=== PATIENT | male | born 1960 | race American Indian/Alaskan Native ===

== ENCOUNTER 2021-02-28 14:40 | Emergency (ER) | payer SELFPAY ==
[2021-02-28 16:24] VITALS: BP 133/80
--- NOTE | 2021-02-28 18:06 | XRay Report ---
LEFT KNEE 3 VIEWS INDICATION: left knee pain. COMPARISON: No relevant prior imaging study available. FINDINGS: No acute skeletal abnormality. No significant joint effusion. No significant degenerative changes. So ft tissues are unremarkable. IMPRESSION: 1. No acute findings. Signer Name: Denys Tobias MD Signed: 02/28/2021 6:02 PM Workstation Name: [id number]
--- NOTE | 2021-02-28 18:21 | Emergency Department Report ---
ED Extremity Problem HPI - General Chief complaint: Extremity Injury, Lower Stated complaint: LT KNEE PAIN Time Seen by Provider: 02/28/21 17:32 Source: patient Mode of arrival: Ambulatory Limitations: No Limitations - History of Present Illness Initial comments: Patient is a 61-year-old male presents emergency room with complaints of left knee pain that began a couple days ago. He denies any fall or injury. 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 He denies ever having in the past. He denies any numbness or weakness. He denies any fever, redness, nausea, vomiting, diarrhea, chills. He denies ever injuring in the past. No past medical history. No allergies to medications. Severity scale (0 -10): 10 - Related Data Previous Rx's Medication Instructions Recorded Last Taken Type Diclofenac Sodium [Voltaren 1 applicatio TP BID #20 gel..gram. 02/28/21 Unknown Rx Arthritis Pain] Naproxen [EC-Naproxen] 500 mg PO BID PRN #20 tablet. 02/28/21 Unknown Rx Allergies Allergy/AdvReac Type Severity Reaction Status Date / Time No Known Allergies Allergy Unverified 02/28/21 16:20 ED Review of Systems ROS: Stated complaint: LT KNEE PAIN Other details as noted in HPI Comment: All other systems reviewed and negative ED Past Medical Hx - Past Medical History Previous Medical History?: No - Surgical History Hx Appendectomy: Yes Additional Surgical History: abd surgery - Medications Home Medications: Home Medications Medication Instructions Recorded Confirmed Last Taken Type Diclofenac Sodium [Voltaren 1 applicatio TP BID #20 gel..gram. 02/28/21 Unknown Rx Arthritis Pain] Naproxen [EC-Naproxen] 500 mg PO BID PRN #20 tablet. 02/28/21 Unknown Rx ED Physical Exam - General Limitations: No Limitations General appearance: alert, in no apparent distress - Head Head exam: Present: atraumatic, normocephalic - Eye Eye exam: Present: normal appearance - ENT ENT exam: Present: mucous membranes moist - Respiratory Respiratory exam: Absent: respiratory distress, accessory muscle use - Extremities Exam Extremities exam: Present: other (ttp to the left anterior and medial knee, no edema, no increased warmth, no erythema, no skin changes, no joint laxity, no deformity, neurovascularly intact, no calf ttp, no leg edema) - Neurological Exam Neurological exam: Present: alert, oriented X3 - Psychiatric Psychiatric exam: Present: normal affect, normal mood - Skin Skin exam: Present: warm, dry, intact ED Course Vital Signs 02/28/21 16:22 Temperature 98.4 F Pulse Rate 72 Respiratory 16 Rate Blood Pressure 133/80 [Right] O2 Sat by Pulse 99 Oximetry ED Medical Decision Making - Radiology Data Radiology results: report reviewed Ordering Physician: DAWSON GIBSON Date of Service: 02/28/21 Procedure(s): XR knee 3V LT Accession Number(s): [id number] cc: DAWSON GIBSON Fluoro Time In Minutes: LEFT KNEE 3 VIEWS INDICATION: left knee pain. COMPARISON: No relevant prior imaging study available. FINDINGS: No acute skeletal abnormality. No significant joint effusion. No significant degenerative changes. Soft tissues are unremarkable. IMPRESSION: 1. No acute findings. Signer Name: Denys Tobias MD Signed: 02/28/2021 6:02 PM Workstation Name: [id number] Transcribed By: KYLAH Dictated By: Denys Tobias MD Electronically Authenticated By: Denys Tobias MD Signed Date/Time: 02/28/211801 DD/ 00 TD/TT: - Medical Decision Making Patient is a 61-year-old male presents emergency room with complaints of left knee pain that began a couple days ago. He denies any fall or injury. 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 He denies ever having in the past. He denies any numbness or weakness. He denies any fever, redness, nausea, vomiting, diarrhea, chills. He denies ever injuring in the past. No past medical history. No allergies to medications. Vitals are normal. On exam:ttp to the left anterior and medial knee, no edema, no increased warmth, no erythema, no skin changes, no joint laxity, no deformity, neurovascularly intact, no calf ttp, no leg edema. X-ray left knee: 1. No acute findings. Symptoms could be related to tendinitis versus bursitis. Could be job-related secondary to frequent movement and kneeling. Patient given prescription for Voltaren gel and naproxen. Advised patient Please use medication as prescribed. May use ice for 15 minutes at a time, rest, elevation of the leg. Please avoid kneeling onto that knee. Follow-up with orthopedic doctor. Return to emergency room for new or symptoms. Critical care attestation.: If time is entered above; I have spent that time in minutes in the direct care of this critically ill patient, excluding procedure time. ED Disposition Clinical Impression: Left knee pain Qualifiers: Chronicity: acute Qualified Code(s): M25.562 - Pain in left knee Disposition: DC- TO HOME OR SELFCARE Is pt being admited?: No Does the pt Need Aspirin: No Condition: Stable Instructions: Acute Knee Pain, Adult, Elastic Bandage and RICE Therapy Additional Instructions: Please use medication as prescribed. May use ice for 15 minutes at a time, rest, elevation of the leg. Please avoid kneeling onto that knee. Follow-up with orthopedic doctor. Return to emergency room for new or symptoms. Your x-ray is within normal limits Prescriptions: Naproxen [EC-Naproxen] 500 mg PO BID PRN #20 tablet.dr KAILASH Reason: pain Diclofenac Sodium [Voltaren Arthritis Pain] 1 applicatio TP BID #20 gel..gram. Referrals: ELIS RAYO MD [Staff Physician] - 3-5 Days [facility] [Provider Group] - 3-5 Days Time of Disposition: 18:22 Print Language: ARABIC
== END 2021-02-28 19:31 | disposition home or self-care (01) ==
LOC: ED 14:40
DX: M25.562 Pain in left knee (principal); Z79.899 Other long term (current) drug therapy; Z90.49 Acquired absence of other specified parts of digestive tract; Z98.890 Other specified postprocedural states
CPT/HCPCS: 99283